=== PATIENT | male | born 1980 | race Two or more races ===

== ENCOUNTER 2021-09-03 22:35 | Emergency (ER) | payer SELFPAY ==
[2021-09-03 22:47] VITALS: TEMP 98; BMI 28.8
[2021-09-04] MEDS ORDERED: SODIUM CHLORIDE 0.9% 500 ML INFUS.BAG IV ONE (00:18)
[2021-09-04] MEDS ORDERED: ACETAMINOPHEN 500 MG TABLET (FP) PO ONE (00:18)
[2021-09-04 01:00] LABS: HEMATOCRIT 40.7 % (35.4-49); HEMOGLOBIN 13.4 GM/dL (11.7-16.9); MCH 25.8 pg (25.7-33.7); MCHC 33.1 g/dl (32.0-35.9); MEAN CELL VOLUME 77.9 fl (80-96); MEAN PLT VOLUME 8.2 fl (7.5-11.1); PLATELET COUNT 190 10^3/uL (134-434); RBC 5.22 M/mm3 (4.00-5.60); RDW 14.3 % (11.9-15.9); WHITE BLOOD COUNT 4.9 K/mm3 (4.0-10.0)
[2021-09-04 01:21] LABS: CHLORIDE 106 mmol/L (98-107); SODIUM 139 mmol/L (136-145)
[2021-09-04 01:24] LABS: ALBUMIN 3.7 g/dl (3.4-5.0); ANION GAP 5 MMOL/L (8-16); BLOOD UREA NITROGEN 17.4 mg/dL (7-18); CALCIUM 8.6 mg/dL (8.5-10.1); CO2 28 mmol/L (21-32)
[2021-09-04 01:25] LABS: GLUCOSE,RANDOM 110 mg/dL (74-106)
[2021-09-04 01:27] LABS: SGPT/ALT 34 U/L (13-61)
[2021-09-04 01:28] LABS: SGOT/AST 23 U/L (15-37)
[2021-09-04 01:29] LABS: BILIRUBIN,TOTAL 0.3 mg/dL (0.2-1); TOT PROT 7.2 g/dl (6.4-8.2)
[2021-09-04 01:30] LABS: ALK PHOS 60 U/L (45-117)
[2021-09-04 01:40] LABS: INR 1.04 (0.83-1.09); PROTHROMBIN TIME (PATIENT) 11.7 SEC (9.7-13.0)
[2021-09-04] MEDS ORDERED: IBUPROFEN 400 MG TABLET (FP) PO ONE ×2 (02:28→02:58)
[2021-09-04 09:47] VITALS: BP 116/70; PULSE 60
== END 2021-09-04 09:47 | disposition home or self-care (01) ==
LOC: JER 22:35
DX: R06.00 Dyspnea, unspecified (principal)
CPT/HCPCS: 36415; 71046-TC-FY; 80053; 84443; 84484; 85027; 85379; 85610; 93005; 93010; 99285-25; C9803; U0003; U0005